=== PATIENT | female | born 1935 | race Caucasian/White ===

== ENCOUNTER → 2018-12-04 | Outpatient (CLI) | payer MEDICARE | END | disposition home or self-care (01) | LOC: RAD 07:55 | DX: J44.9 Chronic obstructive pulmonary disease, unspecified (principal); Z87.891 Personal history of nicotine dependence ==

== ENCOUNTER → 2020-06-26 | Outpatient (CLI) | payer MEDICARE | END | disposition home or self-care (01) | LOC: RAD 10:20 | PROVIDERS: ATTEND Internal Medicine | DX: M51.36 Other intervertebral disc degeneration, lumbar region (principal); M54.9 Dorsalgia, unspecified ==

== ENCOUNTER → 2022-04-16 | Outpatient (CLI) | payer MEDICARE ==
[~2022-04-16] MED LIST: BUSPAR15 MG PO; COLACE100 MG PO; ELIQUIS2.5 M1 PO; FEROSUL325 MG PO; LASIX20 MG PO; LEVOFLOXACIN750 M2 PO; MELATONIN1 MG PO; METOPROLOL SUCC25 M2 PO; MONTELUKAST SOD10 MG PO; Metolazone5 MG PO; OMEPRAZOLE40 MG PO; POTASSIUM CHLO20 ME4 PO; SILDENAFIL20 M1 PO; SPIRONOLACTONE50 M1 PO; SYMB160 INH; Synthroid,Levo25 MCG PO; VENT7GM INH
== END | disposition home or self-care (01) ==
LOC: ORTHO 00:54
PROVIDERS: ATTEND Orthopaedic Surgery
DX: S42.215A Unspecified nondisplaced fracture of surgical neck of left humerus, initial encounter for closed fracture (principal); S22.42XA Multiple fractures of ribs, left side, initial encounter for closed fracture; D48.0 Neoplasm of uncertain behavior of bone and articular cartilage; M25.712 Osteophyte, left shoulder; Z95.0 Presence of cardiac pacemaker; W19.XXXA Unspecified fall, initial encounter; Y93.89 Activity, other specified; Y92.89 Other specified places as the place of occurrence of the external cause; Y99.8 Other external cause status

== ENCOUNTER → 2022-05-10 | Outpatient (CLI) | payer MEDICARE | END | disposition home or self-care (01) | LOC: ORTHO 01:11 | PROVIDERS: ATTEND Orthopaedic Surgery | DX: S52.135D Nondisplaced fracture of neck of left radius, subsequent encounter for closed fracture with routine healing (principal); S42.212D Unspecified displaced fracture of surgical neck of left humerus, subsequent encounter for fracture with routine healing; M16.12 Unilateral primary osteoarthritis, left hip; X58.XXXD Exposure to other specified factors, subsequent encounter ==

== ENCOUNTER → 2022-06-07 | Outpatient (CLI) | payer MEDICARE | END | disposition home or self-care (01) | LOC: ORTHO 01:59 | PROVIDERS: ATTEND Orthopaedic Surgery | DX: S42.212D Unspecified displaced fracture of surgical neck of left humerus, subsequent encounter for fracture with routine healing (principal); S52.135D Nondisplaced fracture of neck of left radius, subsequent encounter for closed fracture with routine healing; X58.XXXD Exposure to other specified factors, subsequent encounter ==

== ENCOUNTER → 2022-08-11 | Outpatient (CLI) | payer MEDICARE | END | disposition home or self-care (01) | LOC: ORTHO 02:47 | PROVIDERS: ATTEND Orthopaedic Surgery | DX: S52.135D Nondisplaced fracture of neck of left radius, subsequent encounter for closed fracture with routine healing (principal); S42.212D Unspecified displaced fracture of surgical neck of left humerus, subsequent encounter for fracture with routine healing; M19.012 Primary osteoarthritis, left shoulder; X58.XXXD Exposure to other specified factors, subsequent encounter ==

== ENCOUNTER → 2022-08-24 | Outpatient (CLI) | payer MEDICARE | END | disposition home or self-care (01) | LOC: LAB 10:23 | PROVIDERS: ATTEND Nurse Practitioner | DX: R19.7 Diarrhea, unspecified (principal) ==

== ENCOUNTER 2023-03-09 21:39 | Emergency (ER) | payer MEDICARE ==
[~2023-03-09] VITALS: Wt 105.0 kg
[~2023-03-09 21:39] MED LIST changes: +CEFPODOXIME PR200 M1 PO; +CRANBERRY250 MG PO; +ELIQUIS5 M1 PO; +IRON325 M1 PO; +Ipratropium Brom3 ML INH; +LASIX40 MG PO; +LEVOFLOXACIN500 MG PO; +LOPERAMIDE HCL2 MG PO; +MELATONIN3 MG PO; +METOPROLOL25 MG PO; +PREDNISONE10 MG PO; +PROTONIX40 MG PO; +RENA-VITE1 TAB PO; +REVATIO20 MG PO; +SANTYL30 GM T; +TRAZODONE50 MG PO; +TYGACIL50 MG IV; +VISTARIL25 M2 PO; +VITAMIN D325 MCG PO; +Zaroxolyn,Diul2.5 MG PO; +[UNRECOGNIZED DRUG - OTHER]
[2023-03-09 21:45] VITALS: BP 126/66
[2023-03-09 22:20] LABS: BASO % 0.1 % (0.0-1.0); HEMATOCRIT 41.7 % (37.0-47.0); LYMPH # 0.8 10*3/uL (1.3-4.4); LYMPH % 9.8 % (27.0-41.0); MEAN CELL VOLUME 95.4 fl (81.0-99.0); MEAN CORPUSCULAR HGB 27.5 pg (27.0-31.0); MEAN CORPUSCULAR HGB CONC 28.8 g/dl (33.0-37.0); MEAN PLATELET VOLUME 8.5 fl (9.6-12.3); MONO # 0.2 10*3/uL (0.1-1.0); MONO % 3.1 % (3.0-9.0); NEUT # 6.8 10*3/uL (2.3-7.9); NEUT % 86.6 % (47.0-73.0); PLATELET COUNT AUTOMATED 232 10*3/uL (130-400); RED BLOOD COUNT 4.37 10*6/uL (4.10-5.10); RED CELL DISTRI WIDTH 13.2 % (0-14.5); WHITE BLOOD COUNT 7.8 10*3/uL (4.8-10.8)
[2023-03-09 22:31] LABS: ACT PARTIAL THROMBO TIME 29.4 SECONDS (20.0-32.1)
[2023-03-09 22:41] LABS: ALKALINE PHOSPHATASE 52 U/L (46-116); CHLORIDE 98 mmol/L (98-107); LIPASE 32 U/L (12-53); POTASSIUM 4.5 mmol/L (3.4-5.1); SGPT/ALT 10 U/L (5-49); TOTAL PROTEIN 6.5 gm/dL (6.0-8.0)
[2023-03-09 22:45] LABS: BUN 37 mg/dl (9-23)
[2023-03-09 23:04] LABS: BILIRUBIN Negative (Negative); BLOOD Negative (Negative); CLARITY Clear (Clear); COLOR Yellow (Yellow); GLUCOSE Negative (Negative); KETONE Negative (Negative); LEUKO ESTERASE Negative (Negative); NITRITE Negative (Negative); PH 7.5 (4.5-8.0); UROBILINOGEN 0.2 E.U./dl (0.0-1.0)
[2023-03-09 23:51] LABS: RBC 0-2 rbc/hpf (0-2); WBC 0-2 wbc/hpf (0-5)
== END 2023-03-10 05:30 ==
LOC: ED 21:39
PROVIDERS: Internal Medicine
DX: T82.524A Displacement of infusion catheter, initial encounter (principal); I50.9 Heart failure, unspecified; I48.91 Unspecified atrial fibrillation; Z88.2 Allergy status to sulfonamides; Z90.49 Acquired absence of other specified parts of digestive tract; Z90.89 Acquired absence of other organs; Z90.710 Acquired absence of both cervix and uterus; Z98.890 Other specified postprocedural states; F17.200 Nicotine dependence, unspecified, uncomplicated

== ENCOUNTER 2023-03-11 16:37 | Emergency (ER) | payer MEDICARE ==
[2023-03-11 16:43] VITALS: BP 130/84
== END 2023-03-11 17:57 ==
LOC: ED 16:37
DX: T80.89XA Other complications following infusion, transfusion and therapeutic injection, initial encounter (principal); I50.9 Heart failure, unspecified; I48.91 Unspecified atrial fibrillation; Z88.2 Allergy status to sulfonamides; Z90.49 Acquired absence of other specified parts of digestive tract; Z90.710 Acquired absence of both cervix and uterus; Z90.89 Acquired absence of other organs; Z98.890 Other specified postprocedural states; F17.200 Nicotine dependence, unspecified, uncomplicated